=== PATIENT | male | born 1945 | race African-American/Black ===

== ENCOUNTER → 2017-07-27 | Outpatient (CLI) | payer MEDICARE ==
--- NOTE | 2017-07-27 14:29 | US ---
EXAMINATION TYPE: US kidneys/renal and bladder DATE OF EXAM: 07/27/2017 COMPARISON: pet ct perfusion 2016 CLINICAL HISTORY: N18.3 Chronic kidney disease, stage 3 (moderate). EXAM MEASUREMENTS: Right Kidney: 9.8 x 4.2 x 4.8 cm Left Kidney: 10.5 x 5.1 x 4.3 cm Post Void Residual Volume: 9 mL liver cyst 1.7 x 1.7 x 1.0 cm left lobe Right Kidney: small cyst lower pole 1.2 x 1.0 x1.5 cm Left Kidney: wnl Bladder: Limited by incomplete distention demonstrates no definite obvious abnormality. Bilateral Jets seen: No Normal Post Void Residual: Yes IMPRESSION: 1. Hepatic cyst appears unchanged from 2016 CT scan. 2. No hydronephrosis or nephrolithiasis bilaterally. Hypoechoic nodule in the right kidney is too sma ll to characterize difficult to determine by ultrasound if it is related to extrarenal pelvis or para pelvic cyst.
== END | disposition home or self-care (01) ==
LOC: RADUSWWP 13:29
PROVIDERS: ATTEND Internal Medicine
DX: N18.3 Chronic kidney disease, stage 3 (moderate) (principal); K76.89 Other specified diseases of liver
CPT/HCPCS: 76770

== ENCOUNTER 2019-12-06 08:48 | Inpatient (IN) | payer MEDICARE ==
[2019-12-06] MEDS ORDERED: ONDANSETRON 4 MG/2 ML VIAL IVP PRN (09:00)
[2019-12-06 09:48] LABS: Basophils % (A) 0 %; Eosinophils % (A) 1 %; HCT 40.7 % (39.0-53.0); HGB 13.2 gm/dL (13.0-17.5); Lymphocytes # (A) 1.1 k/uL (1.0-4.8); Lymphocytes % (A) 21 %; MCH 29.4 pg (25.0-35.0); MCHC 32.4 g/dL (31.0-37.0); MCV 90.5 fL (80.0-100.0); Mean Platelet Volume 8.6; Monocytes # (A) 0.1 k/uL (0-1.0); Monocytes % (A) 3 %; Neutrophils # (A) 3.7 k/uL (1.3-7.7); Neutrophils % (A) 73 %; Platelet Count 147 k/uL (150-450); RDW 14.5 % (11.5-15.5); WBC 5.1 k/uL (3.8-10.6)
[2019-12-06 09:58] LABS: ALT 21 U/L (4-49); AST 29 U/L (17-59); African American GFR (CKD) 67 (>60 ml/min/1.73 sqM); Albumin 3.9 g/dL (3.5-5.0); Albumin/Globulin Ratio 1.8; Alkaline Phosphatase 72 U/L (38-126); Anion Gap 8 mmol/L; Blood Urea Nitrogen 18 mg/dL (9-20); Calcium 9.4 mg/dL (8.4-10.2); Carbon Dioxide 25 mmol/L (22-30); Chloride 107 mmol/L (98-107); Globulin 2.2 g/dL; Glucose 110 mg/dL (74-99); Non-African American GFR(CKD) 58 (>60 ml/min/1.73 sqM); Phosphorus 3.8 mg/dL (2.5-4.5); Potassium 4.3 mmol/L (3.5-5.1); Sodium 140 mmol/L (137-145); Total Bilirubin 0.5 mg/dL (0.2-1.3); Total Protein 6.1 g/dL (6.3-8.2); Uric Acid 3.6 mg/dL (3.5-8.5)
[2019-12-06 10:08] LABS: INR 0.9 (<1.2); Prothrombin Time 9.7 sec (9.0-12.0)
[2019-12-06] MEDS ORDERED: LIDOCAINE 1% INJ 10MG/ML (20 ML MDV) ONE (13:33)
[2019-12-06] MEDS ORDERED: LIDOCAINE 1% INJ 10MG/ML (20 ML MDV) SQ ONE (13:45)
[2019-12-06] MEDS: SODIUM CHLORIDE 0.9% 1,000 ML IV SCH ×3 (14:28→18:22)
[2019-12-06] MEDS: DEXAMETHASONE SOD PHOSPHATE 10 MG/ML 1 ML VIAL IV SCH (14:34)
[2019-12-06] MEDS: ONDANSETRON 16 MG in SODIUM CHLORIDE 0.9% 50 ML IVPB SCH (14:34)
[2019-12-06] MEDS: FAMOTIDINE 20 MG/2 ML VIAL IVP SCH (14:34)
[2019-12-06] MEDS: allopurinoL 300 MG TAB PO SCH (15:26)
[2019-12-06] MEDS: ETOPOSIDE 200 MG in SODIUM CHLORIDE 0.9% 500 ML 500 ML IV SCH (15:27)
--- NOTE | 2019-12-06 16:55 | IR ---
EXAMINATION TYPE: IR cvc insert >=5 years DATE OF EXAM: 12/06/2019 COMPARISON: NONE CLINICAL HISTORY: Lymphoma Needs long-term intravenous access for chemotherapy. PROCEDURE: Hand hygiene obtained with soap and water and alcohol-based hand rub. After informed consent, the skin overlying the left brachial vein was localized with ultrasound and n oted to be compressible and patent. An ultrasound image was obtained and submitted on the patient's chart. The overlying skin was prepped and draped and Lidocaine was used for local anesthesia. A ski n jose was made with a scalpel. Access was gained to the vein under ultrasound guidance with a 21 ga uge needle and a 0.018 inch wire was advanced. Access site was dilated with Peel-Away sheath and cat heter tailored to the appropriate length and advanced such that the distal tip is at the cavoatrial j unction. Spot image was obtained verifying placement. Catheter was fixed to the skin and a sterile dressing was placed following hemostasis. Catheter was aspirated and flushed with saline. Patient w as discharged in stable condition without complication.Maximal barrier technique is utilized. Ultras ound image is documented on the chart. Ultrasound used with sterile technique. Fluoro time and fluoroscopic images submitted to document procedure: 2 intraoperative images, 0.4 min utes fluoroscopy time IMPRESSION: STATUS POST ULTRASOUND AND FLUOROSCOPIC GUIDED PICC LINE PLACEMENT, READY FOR USE. THIS PROCEDURE WAS PERFORMED BY THE UNDERSIGNED.
--- NOTE | 2019-12-06 17:30 | P.HPIM ---
History of Present Illness H&P Date: 12/06/19 Chief Complaint: Timed Chemotherapy Follow Up for Non Hodgkins Lymphoma HPI : Pt is known to our practice with primary oncologist Dr. 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 He also had a bone marrow aspirate and biopsy, which was positive. The patient ,initially,was on watchful approach. In ,he noticed right neck mass which led to a repeat PET scan which showed evidence of disease progression. He had a repeat PET scan on 08/22/2011 which showed improvement. He developed enlarging axillary LN the end of December, and night sweats almost on a daily basis. He had a repeat CT scan on 01/22/2012 which revealed extensive generalized lymphadenopathies. A PET scan on 01/30/2012 revealed uptake in multiple enlarging lymp nodes, but no very high uptake suggestive of transformation. He had a left axillary lymph node biopsy on 02/03/2012 which revealed SLL. Pt started FCR on 02/17/2012 and completed his 6th and final cycle on 013.tolerated it very well. Repeat CT of chest/abdomen/pelvis on 08/12/2012 showed almost complete response,they reported a questionable lesion in the colon. Repeat CT scan on 02/10/[address] scan of chest/abdomen/pelvis on 07/16/2014 revealed a new small,1.8cm,left inguinal node. Repeat CT scan of chest/abdomen/pelvis on 04/25/2015 revealed slight increase in size of left inguinal node,otherwise negative. On 08/03/2015,PET scan revealed suspicious uptake in left inguinal node,otherwise negative. On 08/26/2015,excisional biopsy of left inguinal node revealed diffuse large B cell lymphoma. On 08/30/2015,echocardiogram revealed normal EF. He started RCHOP on 09/12/2015 Repeat PET scan on 11/10/2015 revealed no active disease. He completed 6 cycles of R-CHOP on 01/02/2016. Repeat PET scan on 02/01/2016 was normal. He did well until October/2019 when he noticed enlarged LN in his neck and groin. Repeat PET scan on 11/10/2019 revealed several enlarged nodes above and below diaphragm,the highest SUV was in left supraclavicular node (SUV 12.6),for which he underwent exicional biopsy on 11/14/2019,biopsy was positive for non germinal center DLBCL on background of SLL,LDH,hepatitis panel ,CBC were normal,uric acid 6.8. He feels fine,active,no systemic symptoms. Dr. 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 As a standard of care,recommendations for salvage therapy with RICE regimen to be followed by autologous stem cell transplant. The patients case was discussed with Dr Germán Baldwin at [facility], currently there is no open protocol for him at this time. Based on that, we will proceed with salvage RICE followed by transplant. We discussed potential toxicities and side effects,he agreed to proceed with it today on 12/06/2019. He was started on allopurinol on 11/27. He has been admitted to oncology floor, picc line order placed. Medical management consultation. Review of Systems All systems: negative Constitutional: Reports as per HPI Past Medical History Past Medical History: GERD/Reflux, Hypertension Additional Past Medical History / Comment(s): 2010 diagnosed with lymphoma- received chemo in 2011 and 2015, diverticular disease/benign polyp, unable to complete sleep study-uses TAP device History of Any Multi-Drug Resistant Organisms: None Reported Additional Past Surgical History / Comment(s): Colonoscopies/benign polypectomy, port since removed, biopsy L lower neck in 2010 and recently. Past Anesthesia/Blood Transfusion Reactions: No Reported Reaction Smoking Status: Former smoker - Past Family History Father Family Medical History: Cancer Additional Family Medical History / Comment(s): Prostate cancer. Mother Family Medical History: COPD Additional Family Medical History / Comment(s): Mother from COPD. She was a smoker. Medications and Allergies Home Medications Medication Instructions Recorded Confirmed Type Carvedilol [Coreg] 6.25 mg PO BID 12/06/19 12/06/19 History Cholecalciferol [Vitamin D3 (25 1,000 unit PO DAILY 12/06/19 12/06/19 History Mcg = 1000 Iu)] Multivitamins, Thera [Multivitamin 1 tab PO DAILY 12/06/19 12/06/19 History (formulary)] allopurinoL [Zyloprim] 300 mg PO DAILY 12/06/19 12/06/19 History amLODIPine [Norvasc] 5 mg PO DAILY 12/06/19 12/06/19 History Allergies Allergy/AdvReac Type Severity Reaction Status Date / Time No Known Allergies Allergy Verified 11/29/19 14:35 Physical Exam Vitals: Vital Signs Temp Pulse Resp BP Pulse Ox 12/06/19 15:35 97.6 F 62 14 118/64 97 12/06/19 09:15 97.9 F 74 18 123/70 97 Intake and Output 12/06/19 12/06/19 12/06/19 06:59 14:59 22:59 Other: Voiding Method Toilet # Voids 2 Weight 84.731 kg - Constitutional General appearance: cooperative, no acute distress - EENT Eyes: EOMI, PERRLA ENT: NA/AT, normal oropharynx - Neck Neck: normal ROM - Respiratory Respiratory: bilateral: CTA - Cardiovascular Rhythm: regular Heart sounds: normal: S1, S2 - Gastrointestinal General gastrointestinal: normal bowel sounds, soft - Genitourinary Bilateral Inguinal adenopathy Male genitourinary: right inguinal lymphadenopathy - Integumentary Integumentary: normal - Neurologic Neurologic: CNII-XII intact - Musculoskeletal Musculoskeletal: generalized weakness, strength equal bilaterally - Psychiatric Psychiatric: A&O x's 3, appropriate affect, intact judgment & insight Results CBC & Chem 7: 12/06/19 09:16 12/06/19 09:16 Labs: Abnormal Lab Results - Last 24 Hours (Table) 12/06/19 12/06/19 Range/Units 09:16 09:16 Plt Count 147 L (150-450) k/uL Glucose 110 H (74-99) mg/dL Total Protein 6.1 L (6.3-8.2) g/dL Thrombosis Risk Factor Assmnt - DVT/VTE Prophylaxis DVT/VTE Prophylaxis: Pharmacologic Prophylaxis ordered - Choose All That Apply Any of the Below Risk Factors Present?: Yes Each Factor Represents 1 point: Obesity (BMI >25) Other Risk Factors: Yes Each Risk Factor Represents 2 Points: Age 61-74 years, Malignancy Other congenital or acquired thrombophilia - If yes, enter type in comment: No Thrombosis Risk Factor Assessment Total Risk Factor Score: 5 Thrombosis Risk Factor Assessment Level: High Risk Assessment and Plan (1) B-cell lymphoma Current Visit: Yes Status: Acute Code(s): C85.10 - UNSPECIFIED B-CELL LYMPHOMA, UNSPECIFIED SITE SNOMED Code(s): 943179818 (2) Small cell B-cell lymphoma Current Visit: Yes Status: Acute Code(s): C83.00 - SMALL CELL B-CELL LYMPHOMA, UNSPECIFIED SITE SNOMED Code(s): 787789715 Plan: Treatment Plan for Salvage therapy of recurrent B Cell Lymphoma - Large B cell lymphoma transformed from small cell lymphoma. Picc line placement for chemotherapy infusion today CBC, CMP, Mag, Phos, Uric acid, LDH Daily while hospitalized Urine dip for RBCs daily prior to Ifos IV Hydration fluids Regular Diet Lovenox VTE prophylaxis as long as platelet count greater than 50K All BLOOD PRODUCTS TO BE LEUKOREDUCED< IRRADIATED< CMV NEG (until antibodies are checked) Transfuse PRBC hemoglobin less than 7, and platelets to be transfused for platelet count less than 10K. PPI - Omeprazole PRN - Antimetics Physician Attest: I have completed the full history and physical and developed the above impression and plan, agree with dictation by NEURORADIOLOGIST, Dictated as a scribe.
[2019-12-06] MEDS: carvediloL 6.25 MG TAB PO SCH (18:22)
[2019-12-06 18:48] LABS: Appearance,Urine Clear (Clear); Bilirubin,Urine Negative (Negative); Blood,Urine Negative (Negative); Color,Urine Light Yellow; Glucose,Urine (UA) Negative (Negative); Ketones,Urine Negative (Negative); Leukocyte Esterase,Urine Negative (Negative); Nitrite,Urine Negative (Negative); Protein,Urine Negative (Negative); Specific Gravity,Urine 1.012 (1.001-1.035); Urobilinogen,Urine <2.0 mg/dL (<2.0)
[2019-12-07 04:41] LABS: Basophils % (A) 0 %; Eosinophils % (A) 0 %; HCT 37.6 % (39.0-53.0); HGB 11.9 gm/dL (13.0-17.5); Lymphocytes # (A) 0.6 k/uL (1.0-4.8); Lymphocytes % (A) 15 %; MCH 28.4 pg (25.0-35.0); MCHC 31.7 g/dL (31.0-37.0); MCV 89.7 fL (80.0-100.0); Mean Platelet Volume 8.7; Monocytes # (A) 0.1 k/uL (0-1.0); Monocytes % (A) 3 %; Neutrophils # (A) 3.2 k/uL (1.3-7.7); Neutrophils % (A) 79 %; Platelet Count 159 k/uL (150-450); RBC 4.19 m/uL (4.30-5.90); RDW 14.8 % (11.5-15.5)
[2019-12-07 06:10] LABS: Appearance,Urine Clear (Clear); Bilirubin,Urine Negative (Negative); Blood,Urine Negative (Negative); Color,Urine Light Yellow; Glucose,Urine (UA) Negative (Negative); Ketones,Urine Negative (Negative); Leukocyte Esterase,Urine Negative (Negative); Nitrite,Urine Negative (Negative); Protein,Urine Negative (Negative); Specific Gravity,Urine 1.013 (1.001-1.035); Urobilinogen,Urine <2.0 mg/dL (<2.0)
[2019-12-07] MEDS: SODIUM CHLORIDE 0.9% 1,000 ML IV SCH ×3 (07:22→15:58)
[2019-12-07] MEDS: allopurinoL 300 MG TAB PO SCH (09:08)
[2019-12-07] MEDS: carvediloL 6.25 MG TAB PO SCH ×2 (09:08→18:29)
[2019-12-07] MEDS: ENOXAPARIN 40 MG/0.4 ML SYRINGE SQ SCH (09:08)
[2019-12-07] MEDS: amLODIPine 5 MG TAB PO SCH (09:09)
[2019-12-07 09:10] LABS: African American GFR (CKD) 77.3 (60.0-200.0); Albumin 3.6 g/dL (3.80-4.90); Albumin/Globulin Ratio 2.4 (1.60-3.17); Anion Gap 8.2 mmol/L (4.00-12.00); BUN/Creat Ratio 18.18 Ratio (12.00-20.00); Calcium 8.9 mg/dL (8.7-10.3); Carbon Dioxide 24.8 mmol/L (21.6-31.8); Globulin 1.5 g/dL (1.6-3.3); Non-African American GFR(CKD) 66.7 (60.0-200.0); Phosphorus 4.9 mg/dL (2.4-5.1); Potassium 4.8 mmol/L (3.5-5.5); Total Bilirubin 0.5 mg/dL (0.2-1.2); Total Protein 5.1 g/dL (6.2-8.2); Uric Acid 4.2 mg/dL (3.7-8.7)
[2019-12-07] MEDS: PANTOPRAZOLE SODIUM 40 MG GRANULE PKT PO SCH (09:15)
[2019-12-07] MEDS: DEXAMETHASONE SOD PHOSPHATE 10 MG/ML 1 ML VIAL IV SCH (14:41)
[2019-12-07] MEDS: ONDANSETRON 16 MG in SODIUM CHLORIDE 0.9% 50 ML IVPB SCH (14:42)
[2019-12-07] MEDS: FAMOTIDINE 20 MG/2 ML VIAL IVP SCH (14:42)
[2019-12-07] MEDS: ETOPOSIDE 200 MG in SODIUM CHLORIDE 0.9% 500 ML 500 ML IV SCH (15:14)
[2019-12-07] MEDS ORDERED: SENNOSIDES 8.6 MG TAB PO PRN (15:59)
[2019-12-07] MEDS ORDERED: IFOSFAMIDE IV ONE (16:00)
[2019-12-07] MEDS ORDERED: [UNRECOGNIZED DRUG - OTHER] IV ONE (16:00)
[2019-12-07] MEDS ORDERED: CARBOplatin 400 MG in SODIUM CHLORIDE 0.9% 250 ML IV ONE (16:00)
[2019-12-07] MEDS ORDERED: IFOSFAMIDE 9,000 MG, IFOSFAMIDE 1,000 MG in SODIUM CHLORIDE 0.9% 1,000 ML IV ONE (16:00)
[2019-12-07] MEDS ORDERED: SODIUM CHLORIDE 0.9% IV ONE (16:00)
[2019-12-07] MEDS ORDERED: MESNA IV ONE (16:00)
--- NOTE | 2019-12-07 16:17 | P.PN ---
Subjective Progress Note Date: 12/07/19 The patient is on day 2 of his chemotherapy protocol. So far. He denies any tolerance issues. No fever/chills/nausea/vomiting. Appetite is well maintained. Objective - Vital Signs Vital signs: Vital Signs Temp 98.2 F 12/07/19 15:24 Pulse 60 12/07/19 15:24 Resp 14 12/07/19 15:24 BP 120/69 12/07/19 15:24 Pulse Ox 99 12/07/19 15:24 Intake & Output 12/06/19 12/07/19 12/07/19 18:59 06:59 18:59 Intake Total 1040 Balance 1040 Weight 84.731 kg Intake: Intake, IV Titration 800 Amount Sodium Chloride 0.9% 1, 800 000 ml @ 100 mls/hr IV . Q10H CHIO Rx#:[id number] Oral 240 Other: Voiding Method Toilet Toilet Toilet # Voids 1 2 - Constitutional General appearance: Present: no acute distress - EENT Eyes: Present: EOMI ENT: Present: hearing grossly normal, normal oropharynx - Respiratory Respiratory: bilateral: CTA - Cardiovascular Rhythm: regular Heart sounds: normal: S1, S2 - Gastrointestinal General gastrointestinal: Present: normal bowel sounds, soft - Integumentary Integumentary: Present: normal - Neurologic Neurologic: Present: CNII-XII intact - Musculoskeletal Musculoskeletal: Present: strength equal bilaterally - Psychiatric Psychiatric: Present: A&O x's 3 (Lymphadenopathy involving bilateral supraclavicular, left axillary, and bilateral inguinal, stable), appropriate affect - Labs CBC & Chem 7: 12/07/19 03:48 12/07/19 03:48 Labs: Abnormal Lab Results - Last 24 Hours (Table) 12/07/19 12/07/19 Range/Units 03:48 03:48 RBC 4.19 L (4.30-5.90) m/uL Hgb 11.9 L (13.0-17.5) gm/dL Hct 37.6 L (39.0-53.0) % Lymphocytes # 0.6 L (1.0-4.8) k/uL Glucose 119 H (70-110) mg/dL Total Protein 5.1 L (6.2-8.2) g/dL Albumin 3.60 L (3.80-4.90) g/dL Globulin 1.5 L (1.6-3.3) g/dL Assessment and Plan (1) B-cell lymphoma Narrative/Plan: The patient was admitted for salvage chemotherapy for diffuse large B-cell lymphoma transformed from small B-cell lymphoma. He is currently on day 2 of R- ICE. Tolerance is reasonable so far. Labs were reviewed showing no evidence of tumor lysis. Counts are all maintained in a safe range. - Continue chemotherapy per protocol - Continue to monitor counts and chemistries. Labs have been ordered. -Add rasburicase if there is any evidence of developing tumor lysis. Current Visit: Yes Status: Acute Code(s): C85.10 - UNSPECIFIED B-CELL LYMPHOMA, UNSPECIFIED SITE SNOMED Code(s): 238723822 Plan: Dr. Wolff has been consulted for medical management.
--- NOTE | 2019-12-07 17:13 | P.CONS ---
History of Present Illness - Reason for Consult Consult date: 12/07/19 - History of Present Illness Annalisa Ponce, is a 74-year-old male, who was admitted to [facility] oncology floor by Dr. Melchor, he has known history of stage IV small lymphocytic lymphoma diagnosed in 2010, he received therapy on and off for years, he did well until recently in October 2019 when he was noticed to have enlarged lymph node in the neck and the groin area repeat PET scan was done and was positive patient is admitted now for chemotherapy. Past medical history is significant for hypertension and gastroesophageal reflux disease, history of diverticulosis, and history of colon polyps. Patient also has history of hypertension and history of gout. On review of systems patient is alert and oriented 3 in no apparent distress he denies any fever or chills no headache or dizziness no chest pain no shortness of breath no cough no nausea or vomiting no abdominal pain no diarrhea no blood in the stools no burning with urination no frequency or urgency and no hematuria Past Medical History Past Medical History: GERD/Reflux, Hypertension Additional Past Medical History / Comment(s): 2010 diagnosed with lymphoma-received chemo in 2011 and 2015, diverticular disease/benign polyp, unable to complete sleep study-uses TAP device History of Any Multi-Drug Resistant Organisms: None Reported Additional Past Surgical History / Comment(s): Colonoscopies/benign polypectomy, port since removed, biopsy L lower neck in 2010 and recently. Past Anesthesia/Blood Transfusion Reactions: No Reported Reaction Smoking Status: Former smoker - Past Family History Father Family Medical History: Cancer Additional Family Medical History / Comment(s): Prostate cancer. Mother Family Medical History: COPD Additional Family Medical History / Comment(s): Mother from COPD. She was a smoker. Medications and Allergies Home Medications Medication Instructions Recorded Confirmed Type Carvedilol [Coreg] 6.25 mg PO BID 12/06/19 12/06/19 History Cholecalciferol [Vitamin D3 (25 1,000 unit PO DAILY 12/06/19 12/06/19 History Mcg = 1000 Iu)] Multivitamins, Thera [Multivitamin 1 tab PO DAILY 12/06/19 12/06/19 History (formulary)] allopurinoL [Zyloprim] 300 mg PO DAILY 12/06/19 12/06/19 History amLODIPine [Norvasc] 5 mg PO DAILY 12/06/19 12/06/19 History Allergies Allergy/AdvReac Type Severity Reaction Status Date / Time No Known Allergies Allergy Verified 11/29/19 14:35 Physical Exam Vitals: Vital Signs Temp Pulse Pulse Resp BP Pulse Ox 12/07/19 12:03 97.8 F 60 14 121/71 100 12/07/19 11:20 97.8 F 60 14 121/71 12/07/19 07:53 97.9 F 61 16 124/69 12/07/19 04:39 97.8 F 64 16 122/68 98 12/07/19 00:00 97.6 F 55 L 18 106/55 97 12/06/19 22:08 97.8 F 64 18 112/65 98 12/06/19 16:00 14 12/06/19 15:35 97.6 F 62 14 118/64 97 Intake and Output 12/06/19 12/07/19 12/07/19 22:59 06:59 14:59 Intake Total 240 Balance 240 Intake: Oral 240 Other: Voiding Method Toilet Toilet Toilet # Voids 1 2 In general patient is alert and oriented 3 HEENT head normocephalic and atraumatic Neck is supple no JVD no goiter Chest exam reveals a few scattered rhonchi no wheezing Cardiac exam reveals regular heart sounds no murmurs Abdomen is soft nontender no organomegaly with normal bowel sounds Extremity exam reveals 2+ edema bilaterally no cyanosis or clubbing Neurological examination reveals no gross focal deficit Results CBC & Chem 7: 12/07/19 03:48 12/07/19 03:48 Labs: Abnormal Lab Results - Last 24 Hours (Table) 12/07/19 12/07/19 Range/Units 03:48 03:48 RBC 4.19 L (4.30-5.90) m/uL Hgb 11.9 L (13.0-17.5) gm/dL Hct 37.6 L (39.0-53.0) % Lymphocytes # 0.6 L (1.0-4.8) k/uL Glucose 119 H (70-110) mg/dL Total Protein 5.1 L (6.2-8.2) g/dL Albumin 3.60 L (3.80-4.90) g/dL Globulin 1.5 L (1.6-3.3) g/dL Assessment and Plan Plan: 1. Diffuse large B-cell lymphoma patient is admitted for chemotherapy, management per oncology service 2. Underlying history of hypertension blood pressure medication resumed 3. Underlying history of gastroesophageal reflux disease started on famotidine 4. Underlying history of gout allopurinol resumed 5. For DVT prophylaxis patient started on subcu Lovenox 40 mg once daily Medication and labs were reviewed will follow closely
[2019-12-08] MEDS: SODIUM CHLORIDE 0.9% 1,000 ML IV SCH ×2 (03:36→15:02)
[2019-12-08] MEDS: carvediloL 6.25 MG TAB PO SCH ×2 (07:13→17:43)
[2019-12-08] MEDS: PANTOPRAZOLE SODIUM 40 MG GRANULE PKT PO SCH (07:13)
[2019-12-08 08:06] LABS: Basophils % (A) 0 %; Eosinophils % (A) 0 %; HCT 36.2 % (39.0-53.0); HGB 12.6 gm/dL (13.0-17.5); Lymphocytes # (A) 0.5 k/uL (1.0-4.8); Lymphocytes % (A) 15 %; MCH 30.5 pg (25.0-35.0); MCHC 34.7 g/dL (31.0-37.0); MCV 87.9 fL (80.0-100.0); Mean Platelet Volume 9.2; Monocytes # (A) 0.1 k/uL (0-1.0); Monocytes % (A) 4 %; Neutrophils # (A) 2.7 k/uL (1.3-7.7); Neutrophils % (A) 79 %; Platelet Count 143 k/uL (150-450); RBC 4.11 m/uL (4.30-5.90); RDW 14.4 % (11.5-15.5); WBC 3.5 k/uL (3.8-10.6)
[2019-12-08] MEDS ORDERED: allopurinoL 300 MG TAB PO SCH (09:00)
[2019-12-08] MEDS ORDERED: MULTIVITAMINS, THERA 1 EACH TAB PO SCH (09:00)
[2019-12-08] MEDS ORDERED: CHOLECALCIFEROL 1,000 UNIT TAB PO SCH (09:00)
[2019-12-08] MEDS: amLODIPine 5 MG TAB PO SCH (09:13)
[2019-12-08] MEDS: ENOXAPARIN 40 MG/0.4 ML SYRINGE SQ SCH (09:13)
[2019-12-08 10:12] VITALS: RESP 16
[2019-12-08 11:17] LABS: African American GFR (CKD) 77.3 (60.0-200.0); Albumin 3.5 g/dL (3.80-4.90); Albumin/Globulin Ratio 2.33 (1.60-3.17); Anion Gap 6.7 mmol/L (4.00-12.00); BUN/Creat Ratio 18.18 Ratio (12.00-20.00); Calcium 8.9 mg/dL (8.7-10.3); Carbon Dioxide 25.3 mmol/L (21.6-31.8); Globulin 1.5 g/dL (1.6-3.3); Magnesium 1.9 mg/dL (1.5-2.4); Non-African American GFR(CKD) 66.7 (60.0-200.0); Phosphorus 4.9 mg/dL (2.4-5.1); Potassium 4.3 mmol/L (3.5-5.5); Total Bilirubin 0.6 mg/dL (0.2-1.2); Uric Acid 4.6 mg/dL (3.7-8.7)
[2019-12-08 12:35] VITALS: TEMP 98.2
[2019-12-08] MEDS ORDERED: polyethylene glycoL 3350 17 GM POWD.PACK PO STA (14:45)
--- NOTE | 2019-12-08 14:48 | P.PN ---
Subjective Progress Note Date: 12/08/19 Annalisa Ponce, is a 74-year-old male, who was admitted to [facility] oncology floor by Dr. Melchor, he has known history of stage IV small lymphocytic lymphoma diagnosed in 2010, he received therapy on and off for years, he did well until recently in October 2019 when he was noticed to have enlarged lymph node in the neck and the groin area repeat PET scan was done and was positive patient is admitted now for chemotherapy. Past medical history is significant for hypertension and gastroesophageal reflux disease, history of diverticulosis, and history of colon polyps. Patient also has history of hypertension and history of gout. On review of systems patient is alert and oriented 3 in no apparent distress he denies any fever or chills no headache or dizziness no chest pain no shortness of breath no cough no nausea or vomiting no abdominal pain no diarrhea no blood in the stools no burning with urination no frequency or urgency and no hematuria On 12/08/2019 patient was seen and examined on the medical floor he is alert and oriented 3 in no apparent distress he is complaining of constipation otherwise he denies any complaints there is no fever or chills no headache or dizziness no chest pain no shortness of breath no cough no nausea or vomiting no abdominal pain no diarrhea no blood in the stools no burning with urination no frequency or urgency no hematuria Objective - Vital Signs Vital signs: Vital Signs Temp 98.2 F 12/08/19 12:34 Pulse 55 L 12/08/19 12:34 Resp 16 12/08/19 12:34 BP 122/64 12/08/19 12:34 Pulse Ox 100 12/08/19 12:34 Intake & Output 12/07/19 12/08/19 12/08/19 18:59 06:59 18:59 Intake Total 1040 1141 Balance 1040 1141 Intake: Intake, IV Titration 800 851 Amount Ifosfamide 9,000 mg 250 Ifosfamide 1,000 mg In Sodium Chloride 0.9% 1, 000 ml @ 50 mls/hr IV ONCE ONE Rx#:[id number] [place] 10,000 mg In Empty 101 Bag 1 bag In Sodium Chloride 0.9% 500 ml 400 ml @ 20.833 mls/hr IV ONCE ONE Rx#:[id number] Sodium Chloride 0.9% 1, 800 500 000 ml @ 100 mls/hr IV . Q10H CHIO Rx#:[id number] Oral 240 290 Other: Voiding Method Toilet Toilet Toilet Urinal Urinal # Voids 2 - Exam In general patient is alert and oriented 3 HEENT head normocephalic and atraumatic Neck is supple no JVD no goiter Chest exam reveals a few scattered rhonchi no wheezing Cardiac exam reveals regular heart sounds no murmurs Abdomen is soft nontender no organomegaly with normal bowel sounds Extremity exam reveals 2+ edema bilaterally no cyanosis or clubbing Neurological examination reveals no gross focal deficit - Labs CBC & Chem 7: 12/08/19 06:56 12/08/19 06:56 Labs: Abnormal Lab Results - Last 24 Hours (Table) 12/08/19 12/08/19 Range/Units 06:56 06:56 WBC 3.5 L (3.8-10.6) k/uL RBC 4.11 L (4.30-5.90) m/uL Hgb 12.6 L (13.0-17.5) gm/dL Hct 36.2 L (39.0-53.0) % Plt Count 143 L (150-450) k/uL Lymphocytes # 0.5 L (1.0-4.8) k/uL Total Protein 5.0 L (6.2-8.2) g/dL Albumin 3.50 L (3.80-4.90) g/dL Globulin 1.5 L (1.6-3.3) g/dL Assessment and Plan Plan: 1. Diffuse large B-cell lymphoma patient is admitted for chemotherapy, management per oncology service 2. Underlying history of hypertension blood pressure medication resumed 3. Underlying history of gastroesophageal reflux disease started on famotidine 4. Underlying history of gout allopurinol resumed 5. For DVT prophylaxis patient started on subcu Lovenox 40 mg once daily Medication and labs were reviewed will follow closely
[2019-12-08] MEDS: DEXAMETHASONE SOD PHOSPHATE 10 MG/ML 1 ML VIAL IV SCH (16:01)
[2019-12-08] MEDS: FAMOTIDINE 20 MG/2 ML VIAL IVP SCH (16:01)
[2019-12-08] MEDS: ONDANSETRON 16 MG in SODIUM CHLORIDE 0.9% 50 ML IVPB SCH (16:02)
--- NOTE | 2019-12-08 16:07 | P.PN ---
Subjective Progress Note Date: 12/08/19 Principal diagnosis: Timed Chemotherapy Patient tolerating treatment great. COnstipation only complaint as of today We discussed treatment plan and expected side effects and prevention of side effects Greater than 30 minutes counseling and cordinating care today Objective - Vital Signs Vital signs: Vital Signs Temp 98.2 F 12/08/19 12:34 Pulse 55 L 12/08/19 12:34 Resp 16 12/08/19 12:34 BP 122/64 12/08/19 12:34 Pulse Ox 100 12/08/19 12:34 Intake & Output 12/07/19 12/08/19 12/08/19 18:59 06:59 18:59 Intake Total 1040 1141 Balance 1040 1141 Intake: Intake, IV Titration 800 851 Amount Ifosfamide 9,000 mg 250 Ifosfamide 1,000 mg In Sodium Chloride 0.9% 1, 000 ml @ 50 mls/hr IV ONCE ONE Rx#:[id number] [place] 10,000 mg In Empty 101 Bag 1 bag In Sodium Chloride 0.9% 500 ml 400 ml @ 20.833 mls/hr IV ONCE ONE Rx#:[id number] Sodium Chloride 0.9% 1, 800 500 000 ml @ 100 mls/hr IV . Q10H CHIO Rx#:[id number] Oral 240 290 Other: Voiding Method Toilet Toilet Toilet Urinal Urinal # Voids 2 - Exam - Constitutional General appearance: Present: no acute distress - EENT Eyes: Present: EOMI ENT: Present: hearing grossly normal, normal oropharynx - Respiratory Respiratory: bilateral: CTA - Cardiovascular Rhythm: regular Heart sounds: normal: S1, S2 - Gastrointestinal General gastrointestinal: Present: normal bowel sounds, soft - Integumentary Integumentary: Present: normal - Neurologic Neurologic: Present: CNII-XII intact - Musculoskeletal Musculoskeletal: Present: strength equal bilaterally - Psychiatric Psychiatric: Present: A&O x's 3 (Lymphadenopathy involving bilateral supraclavicular, left axillary, and bilateral inguinal, stable), appropriate affect - Constitutional General appearance: Present: cooperative - Labs CBC & Chem 7: 12/08/19 06:56 12/08/19 06:56 Labs: Abnormal Lab Results - Last 24 Hours (Table) 12/08/19 12/08/19 Range/Units 06:56 06:56 WBC 3.5 L (3.8-10.6) k/uL RBC 4.11 L (4.30-5.90) m/uL Hgb 12.6 L (13.0-17.5) gm/dL Hct 36.2 L (39.0-53.0) % Plt Count 143 L (150-450) k/uL Lymphocytes # 0.5 L (1.0-4.8) k/uL Total Protein 5.0 L (6.2-8.2) g/dL Albumin 3.50 L (3.80-4.90) g/dL Globulin 1.5 L (1.6-3.3) g/dL Assessment and Plan (1) B-cell lymphoma Status: Acute Code(s): C85.10 - UNSPECIFIED B-CELL LYMPHOMA, UNSPECIFIED SITE SNOMED Code(s): 725781024 (2) Small cell B-cell lymphoma Status: Acute Code(s): C83.00 - SMALL CELL B-CELL LYMPHOMA, UNSPECIFIED SITE SNOMED Code(s): 247003133 Plan: Treatment Plan for Salvage therapy of recurrent B Cell Lymphoma - Large B cell lymphoma transformed from small cell lymphoma. Picc line placement for chemotherapy infusion today CBC, CMP, Mag, Phos, Uric acid, LDH Daily while hospitalized Urine dip for RBCs daily prior to Ifos IV Hydration fluids Regular Diet Lovenox VTE prophylaxis as long as platelet count greater than 50K All BLOOD PRODUCTS TO BE LEUKOREDUCED< IRRADIATED< CMV NEG (until antibodies are checked) Transfuse PRBC hemoglobin less than 7, and platelets to be transfused for platelet count less than 10K. PPI - Omeprazole PRN - Antimetics Greater than 30 minutes counseling discharge today zofran PPI claritin senna s miralax acyclovir all at discharge bradycardia - echo and ekg prior to discharge neulasta office wednesday cbc and followup
[2019-12-08] MEDS: ETOPOSIDE 200 MG in SODIUM CHLORIDE 0.9% 500 ML 500 ML IV SCH (16:19)
[2019-12-08 17:42] VITALS: BP 130/71; PULSE 62
[2019-12-08] MEDS ORDERED: DOCUSATE 100 MG CAP PO SCH (21:00)
== END 2019-12-08 18:39 | disposition home or self-care (01) | DRG 847 ==
LOC: 6NMEDSUR 08:48
PROVIDERS: ADMIT Internal Medicine Hematology & Oncology; ATTEND Internal Medicine Hematology & Oncology
PROC: 02HV33Z Insertion of Infusion Device into Superior Vena Cava, Percutaneous Approach (ICD-10-PCS; 2019-12-06)
PROC: 3E04305 Introduction of Other Antineoplastic into Central Vein, Percutaneous Approach (ICD-10-PCS; principal; 2019-12-06 13:15)
DX: Z51.11 Encounter for antineoplastic chemotherapy (principal); C83.30 Diffuse large B-cell lymphoma, unspecified site; Z94.84 Stem cells transplant status; I10 Essential (primary) hypertension; K21.9 Gastro-esophageal reflux disease without esophagitis; M10.9 Gout, unspecified; R00.1 Bradycardia, unspecified; K59.00 Constipation, unspecified; Z87.891 Personal history of nicotine dependence; Z87.19 Personal history of other diseases of the digestive system; Z80.42 Family history of malignant neoplasm of prostate; Z79.899 Other long term (current) drug therapy; Z82.5 Family history of asthma and other chronic lower respiratory diseases; Z86.010 Personal history of colon polyps
CPT/HCPCS: 36573; 80053; 81003; 83735; 84100; 84550; 85025; 85610; 93005; 93306

== ENCOUNTER 2020-01-02 08:46 | Inpatient (IN) | payer MEDICARE ==
[2020-01-02] MEDS ORDERED: ONDANSETRON 4 MG/2 ML VIAL IVP PRN (09:00)
[2020-01-02] MEDS: allopurinoL 300 MG TAB PO SCH (09:39)
[2020-01-02] MEDS: SODIUM CHLORIDE 0.9% 1,000 ML IV SCH ×2 (10:38→21:42)
[2020-01-02 10:53] LABS: ALT 18 U/L (4-49); AST 19 U/L (17-59); African American GFR (CKD) 64 (>60 ml/min/1.73 sqM); Albumin 3.7 g/dL (3.5-5.0); Albumin/Globulin Ratio 1.7; Alkaline Phosphatase 87 U/L (38-126); Anion Gap 5 mmol/L; Blood Urea Nitrogen 20 mg/dL (9-20); Calcium 9.6 mg/dL (8.4-10.2); Carbon Dioxide 25 mmol/L (22-30); Chloride 107 mmol/L (98-107); Globulin 2.2 g/dL; Glucose 125 mg/dL (74-99); Non-African American GFR(CKD) 55 (>60 ml/min/1.73 sqM); Phosphorus 3.6 mg/dL (2.5-4.5); Potassium 3.9 mmol/L (3.5-5.1); Sodium 137 mmol/L (137-145); Total Bilirubin 0.3 mg/dL (0.2-1.3); Total Protein 5.9 g/dL (6.3-8.2); Uric Acid 3.7 mg/dL (3.5-8.5)
[2020-01-02 11:04] LABS: Anisocytosis Slight; Basophils % (A) 0 %; Eosinophils % (A) 0 %; HCT 34.8 % (39.0-53.0); HGB 11.5 gm/dL (13.0-17.5); Hypochromasia Slight; Lymphocytes # (A) 1.1 k/uL (1.0-4.8); Lymphocytes % (A) 12 %; MCH 28.7 pg (25.0-35.0); MCV 87.1 fL (80.0-100.0); Mean Platelet Volume 7.4; Monocytes # (A) 0.4 k/uL (0-1.0); Monocytes % (A) 5 %; Neutrophils # (A) 7.2 k/uL (1.3-7.7); Neutrophils % (A) 82 %; Poikilocytosis Slight; RBC 3.99 m/uL (4.30-5.90); WBC 8.8 k/uL (3.8-10.6)
[2020-01-02 11:10] LABS: Platelet Count 366 k/uL (150-450)
--- NOTE | 2020-01-02 13:04 | P.HPIM ---
History of Present Illness H&P Date: 01/02/20 Chief Complaint: CIVI chemotherapy for DLBCL Mr. Baez is a very pleasant Male treating with Dr. Melchor. Has Hx of stage IV SLL diagnosed 05/26, presented with a palpable left surpraclavicular LN. BM Bx and asp positive. Initially was on watchful approa ch. 04/26 pt noted rt neck mass, repeat PET showed evidence of disease progression. He had a repeat PET scan on 08/22/2011 which showed improvement. Developed enlarging axillary LN 12/[address] 01/22/2012 revealed extensive generalized lymphadenopathies. PET 01/30/2012 revealed uptake in multiple enlarging LN, but no very high uptake suggestive of transformation. Lt ax LN biopsy 02/03/12 revealed SLL. Treated with FCR, completed his 6th and final cycle on 07/07/12. CT CAP 08/12/12 showed almost complete response. 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 He started RCHOP 09/12/15. PET 11/10/15 revealed no active disease. Completed 6 cycles of R-CHOP on 01/02/16. He did well until Oct 2019 when he noticed enlarged LN in his neck and groin. PET 11/10/19 revealed several enlarged nodes above and below diaphragm, highest SUV was in left supraclavicular node (SUV 12.6), for which he underwent excisional biopsy 11/14/19, positive for non germinal center DLBCL on background of SLL. 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 Standard of care recommendations for salvage therapy with RICE regimen to be followed by autologous stem cell transplant. The patients case was discussed with Dr. Germán Baldwin at [facility], no open protocol available. Based on that, pt started salvage RICE to be followed by transplant. 1st cycle 12/06/2019. He is admitted for cycle #2 today Pt denies any F, oral irritation, appetite decent, no N,V, SOB, cough, chest pains/palpitations, acute changes in bowel or bladder, swelling, rash or bruising. He is ambulatory, energy levels fair, the LN in his groin are notably smaller. He has been having his PSA monitored, he has no urinary symptoms other then slow stream at night. Review of Systems 14 point ROS is negative except as stated in HPI Past Medical History Past Medical History: Cancer, GERD/Reflux, Hypertension Additional Past Medical History / Comment(s): 2010 diagnosed with lymphoma- received chemo in 2011 and 2015, diverticular disease/benign polyp, unable to complete sleep study-uses TAP device History of Any Multi-Drug Resistant Organisms: None Reported Additional Past Surgical History / Comment(s): Colonoscopies/benign polypectomy, port since removed, biopsy L lower neck in 2010 and recently. Past Anesthesia/Blood Transfusion Reactions: No Reported Reaction Past Psychological History: No Psychological Hx Reported Additional Psychological History / Comment(s): Pt resides with his spouse. He is independent. Smoking Status: Former smoker Past Alcohol Use History: Occasional Additional Past Alcohol Use History / Comment(s): Pt started smoking in 1960 and quit in 1975 Past Drug Use History: None Reported - Past Family History Father Family Medical History: Cancer Additional Family Medical History / Comment(s): Prostate cancer. Mother Family Medical History: COPD Additional Family Medical History / Comment(s): Mother from COPD. She was a smoker. Medications and Allergies Home Medications Medication Instructions Recorded Confirmed Type allopurinoL [Zyloprim] 300 mg PO DAILY #14 tab 12/08/19 01/02/20 Rx Allergies Allergy/AdvReac Type Severity Reaction Status Date / Time No Known Allergies Allergy Verified 01/02/20 09:35 Physical Exam Vitals: Intake and Output 01/01/20 01/02/20 01/02/20 22:59 06:59 14:59 Other: Weight 83.4 kg - Constitutional General appearance: cooperative, no acute distress, obese - EENT Eyes: anicteric sclerae, EOMI ENT: hearing grossly normal, normal oropharynx - Neck lt groin subcentimeter hard LN palpable, smaller - Respiratory Respiratory: bilateral: CTA - Cardiovascular Rhythm: regular Heart sounds: normal: S1, S2 Abnormal Heart Sounds: no systolic murmur, no diastolic murmur, no rub, no S3 Gallop, no S4 Gallop, no click, no other leg Peripheral Edema: bilateral: None - Gastrointestinal General gastrointestinal: no absent bowel sounds, no decreased bowel sounds, no distended, no hepatomegaly, no hyperactive bowel sounds, normal bowel sounds, no organomegaly, no rigid, no scaphoid, soft, no splenomegaly, no tenderness, no umbilical hernia, no ventral hernia - Integumentary Integumentary: normal turgor - Neurologic Neurologic: CNII-XII intact - Musculoskeletal Musculoskeletal: strength equal bilaterally - Psychiatric Psychiatric: A&O x's 3, appropriate affect, intact judgment & insight Results CBC & Chem 7: 01/02/20 10:11 01/02/20 10:11 Labs: Abnormal Lab Results - Last 24 Hours (Table) 01/02/20 01/02/20 Range/Units 10:11 10:11 RBC 3.99 L (4.30-5.90) m/uL Hgb 11.5 L (13.0-17.5) gm/dL Hct 34.8 L (39.0-53.0) % RDW 17.0 H (11.5-15.5) % Creatinine 1.29 H (0.66-1.25) mg/dL Glucose 125 H (74-99) mg/dL Total Protein 5.9 L (6.3-8.2) g/dL Thrombosis Risk Factor Assmnt - DVT/VTE Prophylaxis DVT/VTE Prophylaxis: Pharmacologic Prophylaxis ordered - Choose All That Apply Each Risk Factor Represents 2 Points: Age 61-74 years Thrombosis Risk Factor Assessment Total Risk Factor Score: 2 Thrombosis Risk Factor Assessment Level: Low Risk Assessment and Plan (1) B-cell lymphoma Narrative/Plan: Admit for cycle 2 of salvage RICE Labs daily Supportive meds ordered Early, frequent ambulation F/U daily Meds reconciled Telemetry Medicine consulted for Medical Mgmt Current Visit: Yes Status: Acute Priority: High Code(s): C85.10 - UNSPECIFIED B-CELL LYMPHOMA, UNSPECIFIED SITE SNOMED Code(s): 844686748
[2020-01-02] MEDS ORDERED: ACETAMINOPHEN TAB 325 MG TAB PO PRN (13:05)
[2020-01-02] MEDS ORDERED: MAGNESIUM HYDROXIDE 2,400 MG/10 ML CUP PO PRN (13:06)
[2020-01-02] MEDS: DEXAMETHASONE SOD PHOSPHATE 10 MG/ML 1 ML VIAL IV SCH (14:06)
[2020-01-02] MEDS: ONDANSETRON 16 MG in SODIUM CHLORIDE 0.9% 50 ML IVPB SCH (14:06)
[2020-01-02] MEDS: FAMOTIDINE 20 MG/2 ML VIAL IVP SCH (14:06)
[2020-01-02] MEDS: ETOPOSIDE 200 MG in SODIUM CHLORIDE 0.9% 500 ML 500 ML IV SCH (14:48)
[2020-01-02] MEDS: SALT AND SODA MOUTHWASH 1,000 ML PO SCH ×3 (14:53→23:57)
[2020-01-03] MEDS: SODIUM CHLORIDE 0.9% 1,000 ML IV SCH ×2 (06:09→15:05)
[2020-01-03] MEDS: SALT AND SODA MOUTHWASH 1,000 ML PO SCH ×4 (06:10→20:13)
[2020-01-03 08:28] LABS: Anisocytosis Slight; Basophils % (A) 0 %; Eosinophils % (A) 1 %; HGB 12.6 gm/dL (13.0-17.5); Hypochromasia Slight; Lymphocytes # (A) 0.9 k/uL (1.0-4.8); Lymphocytes % (A) 10 %; MCH 30.3 pg (25.0-35.0); MCV 86.7 fL (80.0-100.0); Mean Platelet Volume 7.2; Monocytes # (A) 0.4 k/uL (0-1.0); Monocytes % (A) 4 %; Neutrophils # (A) 7.8 k/uL (1.3-7.7); Neutrophils % (A) 85 %; Platelet Count 408 k/uL (150-450); Poikilocytosis Slight; RBC 4.16 m/uL (4.30-5.90); RDW 17.4 % (11.5-15.5); WBC 9.2 k/uL (3.8-10.6)
[2020-01-03] MEDS: allopurinoL 300 MG TAB PO SCH (08:33)
[2020-01-03 08:45] LABS: ALT 20 U/L (4-49); AST 20 U/L (17-59); African American GFR (CKD) 64 (>60 ml/min/1.73 sqM); Albumin 4.1 g/dL (3.5-5.0); Albumin/Globulin Ratio 1.8; Alkaline Phosphatase 83 U/L (38-126); Anion Gap 6 mmol/L; Blood Urea Nitrogen 21 mg/dL (9-20); Calcium 9.7 mg/dL (8.4-10.2); Carbon Dioxide 26 mmol/L (22-30); Chloride 107 mmol/L (98-107); Globulin 2.3 g/dL; Glucose 113 mg/dL (74-99); Non-African American GFR(CKD) 55 (>60 ml/min/1.73 sqM); Potassium 4.4 mmol/L (3.5-5.1); Sodium 139 mmol/L (137-145); Total Bilirubin 0.8 mg/dL (0.2-1.3); Total Protein 6.4 g/dL (6.3-8.2); Uric Acid 4.2 mg/dL (3.5-8.5)
[2020-01-03] MEDS: amLODIPine 5 MG TAB PO SCH (10:59)
[2020-01-03] MEDS: FAMOTIDINE 20 MG/2 ML VIAL IVP SCH (14:55)
[2020-01-03] MEDS: ONDANSETRON 16 MG in SODIUM CHLORIDE 0.9% 50 ML IVPB SCH (14:56)
[2020-01-03] MEDS: DEXAMETHASONE SOD PHOSPHATE 10 MG/ML 1 ML VIAL IV SCH (14:56)
[2020-01-03] MEDS: ETOPOSIDE 200 MG in SODIUM CHLORIDE 0.9% 500 ML 500 ML IV SCH (15:30)
[2020-01-03] MEDS ORDERED: CARBOplatin 420 MG in SODIUM CHLORIDE 0.9% 250 ML IV ONE (16:00)
[2020-01-03] MEDS ORDERED: IFOSFAMIDE 9,000 MG, IFOSFAMIDE 1,000 MG in SODIUM CHLORIDE 0.9% 1,000 ML IV ONE (16:00)
[2020-01-03] MEDS ORDERED: SODIUM CHLORIDE 0.9% IV ONE (16:00)
[2020-01-03] MEDS ORDERED: MESNA IV ONE (16:00)
--- NOTE | 2020-01-03 16:52 | P.PN ---
Subjective Progress Note Date: 01/03/20 Principal diagnosis: CIVI ICE, cycle 2 In follow-up today patient has no acute complaints. No fevers, tolerating oral intake, no acute changes in bowel or bladder habits, he is independently ambulatory, energy levels good fair Objective - Vital Signs Vital signs: Vital Signs Temp 98.6 F 01/03/20 12:00 Pulse 68 01/03/20 12:00 Resp 12 01/03/20 12:00 BP 112/61 01/03/20 12:00 Pulse Ox 98 01/03/20 12:00 Intake & Output 01/02/20 01/03/20 01/03/20 18:59 06:59 18:59 Intake Total 900 800 Balance 900 800 Weight 83.4 kg Intake: Intake, IV Titration 300 800 Amount Sodium Chloride 0.9% 1, 300 800 000 ml @ 100 mls/hr IV . Q10H [facility] Rx#:[id number] Blood Product 600 Other: Voiding Method Toilet Toilet Toilet Urinal Urinal Urinal # Voids 1 # Bowel Movements 0 - Constitutional General appearance: Present: cooperative, no acute distress, obese - EENT Eyes: Present: anicteric sclerae, EOMI ENT: Present: hearing grossly normal, normal oropharynx - Neck Neck: Present: lymphadenopathy (in the groin, improved) - Respiratory Respiratory: bilateral: CTA - Cardiovascular Rhythm: regular Heart sounds: normal: S1, S2 Abnormal Heart Sounds: Absent: systolic murmur, diastolic murmur, rub, S3 Gallop, S4 Gallop, click, other - Peripheral edema leg Peripheral Edema: bilateral: None - Gastrointestinal General gastrointestinal: Present: normal bowel sounds, soft. Absent: absent bowel sounds, decreased bowel sounds, distended, hepatomegaly, hyperactive bowel sounds, organomegaly, rigid, scaphoid, splenomegaly, tenderness, umbilical hernia, ventral hernia - Integumentary Integumentary: Present: normal - Neurologic Neurologic: Present: CNII-XII intact - Musculoskeletal Musculoskeletal: Present: strength equal bilaterally - Psychiatric Psychiatric: Present: A&O x's 3, appropriate affect, intact judgment & insight - Labs CBC & Chem 7: 01/03/20 08:11 01/03/20 08:11 Labs: Abnormal Lab Results - Last 24 Hours (Table) 01/03/20 01/03/20 Range/Units 08:11 08:11 RBC 4.16 L (4.30-5.90) m/uL Hgb 12.6 L (13.0-17.5) gm/dL Hct 36.0 L (39.0-53.0) % RDW 17.4 H (11.5-15.5) % Neutrophils # 7.8 H (1.3-7.7) k/uL Lymphocytes # 0.9 L (1.0-4.8) k/uL BUN 21 H (9-20) mg/dL Creatinine 1.29 H (0.66-1.25) mg/dL Glucose 113 H (74-99) mg/dL Phosphorus 5.0 H (2.5-4.5) mg/dL Assessment and Plan (1) B-cell lymphoma Narrative/Plan: Admit for cycle 2 of salvage RICE. No acute problems reported today Labs daily-stable Supportive meds ordered. No significant SE reported Early, frequent ambulation. Pt active F/U daily Meds reconciled-BP meds confirmed Telemetry Medicine consulted for Medical Mgmt [place] fluids Current Visit: Yes Status: Acute Priority: High Code(s): C85.10 - UNSPECIFIED B-CELL LYMPHOMA, UNSPECIFIED SITE SNOMED Code(s): 027404554 Plan: Doctor attests: I performed a history and physical examination of this patient, developed impression and plan of care, discussed with dictator. I agree with dictators note, documented as a scribe.
[2020-01-03] MEDS: carvediloL 6.25 MG TAB PO SCH (17:20)
[2020-01-04] MEDS: SODIUM CHLORIDE 0.9% 1,000 ML IV SCH ×2 (01:00→09:37)
[2020-01-04] MEDS: SALT AND SODA MOUTHWASH 1,000 ML PO SCH ×4 (01:00→16:05)
[2020-01-04 06:31] LABS: Anisocytosis Slight; Basophils % (A) 0 %; Eosinophils % (A) 0 %; HCT 35.7 % (39.0-53.0); HGB 11.6 gm/dL (13.0-17.5); Hypochromasia Slight; Lymphocytes # (A) 0.5 k/uL (1.0-4.8); Lymphocytes % (A) 10 %; MCH 28.7 pg (25.0-35.0); MCHC 32.5 g/dL (31.0-37.0); MCV 88.2 fL (80.0-100.0); Mean Platelet Volume 7.7; Monocytes # (A) 0.2 k/uL (0-1.0); Monocytes % (A) 4 %; Neutrophils # (A) 4.7 k/uL (1.3-7.7); Neutrophils % (A) 85 %; Platelet Count 321 k/uL (150-450); Poikilocytosis Slight; RBC 4.04 m/uL (4.30-5.90); WBC 5.6 k/uL (3.8-10.6)
[2020-01-04] MEDS ORDERED: allopurinoL 300 MG TAB PO SCH (09:00)
[2020-01-04] MEDS: carvediloL 6.25 MG TAB PO SCH ×2 (09:38→17:14)
[2020-01-04] MEDS: amLODIPine 5 MG TAB PO SCH (09:38)
[2020-01-04] MEDS: allopurinoL 300 MG TAB PO SCH (09:38)
[2020-01-04 09:59] LABS: African American GFR (CKD) 86.8 (60.0-200.0); Albumin 3.5 g/dL (3.80-4.90); Albumin/Globulin Ratio 2.5 (1.60-3.17); Anion Gap 7.7 mmol/L (4.00-12.00); Calcium 9.3 mg/dL (8.7-10.3); Carbon Dioxide 24.3 mmol/L (21.6-31.8); Globulin 1.4 g/dL (1.6-3.3); Non-African American GFR(CKD) 74.9 (60.0-200.0); Phosphorus 4.1 mg/dL (2.4-5.1); Potassium 4.3 mmol/L (3.5-5.5); Total Bilirubin 0.5 mg/dL (0.2-1.2); Total Protein 4.9 g/dL (6.2-8.2); Uric Acid 3.8 mg/dL (3.7-8.7)
[2020-01-04 11:55] VITALS: BP 122/66; PULSE 59; RESP 17; TEMP 97.6
[2020-01-04] MEDS: ONDANSETRON 16 MG in SODIUM CHLORIDE 0.9% 50 ML IVPB SCH (16:03)
[2020-01-04] MEDS: DEXAMETHASONE SOD PHOSPHATE 10 MG/ML 1 ML VIAL IV SCH (16:04)
[2020-01-04] MEDS: FAMOTIDINE 20 MG/2 ML VIAL IVP SCH (16:04)
[2020-01-04] MEDS: ETOPOSIDE 200 MG in SODIUM CHLORIDE 0.9% 500 ML 500 ML IV SCH (16:52)
--- NOTE | 2020-01-04 17:43 | P.DS ---
Providers Date of admission: 01/02/20 08:46 Expected date of discharge: 01/04/20 Attending physician: Mahogany Melchor Consults: 01/02/20 13:06 Consult Physician Routine Consulting Provider: Sanya Wolff Consult Reason/Comments: medical management Do you want consulting provider notified?: Yes, Notify in am Primary care physician: Mahogany Melchor - Discharge Diagnosis(es) (1) B-cell lymphoma Current Visit: Yes Status: Acute Priority: High Hospital Course: Pt admitted for cycle #2 ICE salvage therapy for DLBCL. Tolerated Tx well, no uncontrolled SE. Conditional DC today. Has appt in ofc tomorrow Assessment: Well-developed well-nourished -Mexican male sitting up in bed, alert and oriented 4, no acute distress, oral mucosa free of thrush or lesions, bilateral breath sounds clear to auscultation, respiratory effort unlabored, S1, S2, regular rate and rhythm, bowel sounds positive, no abdominal discomfort, no swelling Doctor attests: I performed a history and physical examination of this patient, developed impression and plan of care, discussed with dictator. I agree with dictators note, documented as a scribe. Patient Condition at Discharge: Stable Plan - Discharge Summary Discharge Rx Participant: No New Discharge Prescriptions: No Action allopurinoL [Zyloprim] 300 mg PO DAILY #14 tab carvediloL [Coreg] 1 tablet PO BID-W/MEALS amLODIPine [Norvasc] 1 tablet PO DAILY Discharge Medication List allopurinoL [Zyloprim] 300 mg PO DAILY #14 tab 12/08/19 [Rx] amLODIPine [Norvasc] 1 tablet PO DAILY 01/03/20 [History] carvediloL [Coreg] 1 tablet PO BID-W/MEALS 01/03/20 [History] Follow up Appointment(s)/Referral(s): Mahogany Melchor MD [Primary Care Provider] - 01/05/20 2:30 pm (This is for neulasta injection) Patient Instructions/Handouts: Carboplatin (By injection), Etoposide (By injection), Ifosfamide/[place] (Injection) Activity/Diet/Wound Care/Special Instructions: [place] fluids Activity as tolerated Diet as tolerated Report to MD fever 100.5F or higher Get GCSF (WBC booster shot) in ofc 01/05/20 1430 Discharge Disposition: HOME SELF-CARE Pending Studies Pending Results: none
--- NOTE | 2020-01-04 18:09 | P.CONS ---
History of Present Illness - Reason for Consult Consult date: 01/03/20 - History of Present Illness Annalisa Ponce, he is a 74-year-old male well-known to my practice who was admitted by oncology for chemotherapy for B-cell lymphoma, medical consultation was requested for management while hospitalized. Patient has a known history of hypertension, gout, history of colon polyps, he recently had a PSA that was elevated at 10 his previous PSA was 1.5 in October 2018 otherwise no significant past medical history could be elicited. On review of system there is no fever or chills no headache or dizziness no chest pain no shortness of breath no cough no nausea or vomiting no abdominal pain no diarrhea and no urinary symptoms Past Medical History Past Medical History: Cancer, GERD/Reflux, Hypertension Additional Past Medical History / Comment(s): 2010 diagnosed with lymphoma- received chemo in 2011 and 2015, diverticular disease/benign polyp, unable to complete sleep study-uses TAP device History of Any Multi-Drug Resistant Organisms: None Reported Additional Past Surgical History / Comment(s): Colonoscopies/benign polypectomy, port since removed, biopsy L lower neck in 2010 and recently. Past Anesthesia/Blood Transfusion Reactions: No Reported Reaction Past Psychological History: No Psychological Hx Reported Additional Psychological History / Comment(s): Pt resides with his spouse. He is independent. Smoking Status: Former smoker Past Alcohol Use History: Occasional Additional Past Alcohol Use History / Comment(s): Pt started smoking in 1960 and quit in 1975 Past Drug Use History: None Reported - Past Family History Father Family Medical History: Cancer Additional Family Medical History / Comment(s): Prostate cancer. Mother Family Medical History: COPD Additional Family Medical History / Comment(s): Mother from COPD. She was a smoker. Medications and Allergies Home Medications Medication Instructions Recorded Confirmed Type allopurinoL [Zyloprim] 300 mg PO DAILY #14 tab 12/08/19 01/02/20 Rx amLODIPine [Norvasc] 1 tablet PO DAILY 01/03/20 01/03/20 History carvediloL [Coreg] 1 tablet PO BID-W/MEALS 01/03/20 01/03/20 History Allergies Allergy/AdvReac Type Severity Reaction Status Date / Time No Known Allergies Allergy Verified 01/02/20 09:35 Physical Exam Vitals: Vital Signs Temp Pulse Resp BP Pulse Ox 11/18/20 12:00 98.6 F 68 12 112/61 98 01/03/20 08:30 97.8 F 67 16 125/74 97 01/03/20 04:32 97.5 F L 57 L 18 127/72 100 01/03/20 00:00 18 01/02/20 23:00 97.9 F 62 18 116/53 99 Intake and Output 01/03/20 01/03/20 01/03/20 06:59 14:59 22:59 Intake Total 800 Balance 800 Intake: Intake, IV Titration 800 Amount Sodium Chloride 0.9% 1, 800 000 ml @ 100 mls/hr IV . Q10H [facility] Rx#:[id number] Other: Voiding Method Toilet Toilet Urinal Urinal # Bowel Movements 0 On physical exam patient is alert and oriented 3 in no distress HEENT head normocephalic and atraumatic Neck is supple no JVD no goiter no lymphadenopathy Chest exam reveals a few scattered rhonchi no wheezing Cardiac exam reveals regular heart sounds S1 and S2 no gallops no murmurs Abdomen is soft nontender no organomegaly with normal bowel sounds Extremity exam reveals no edema Neurological examination reveals no gross focal deficit Results CBC & Chem 7: 01/04/20 06:20 01/04/20 06:20 Labs: Abnormal Lab Results - Last 24 Hours (Table) 01/03/20 01/03/20 Range/Units 08:11 08:11 RBC 4.16 L (4.30-5.90) m/uL Hgb 12.6 L (13.0-17.5) gm/dL Hct 36.0 L (39.0-53.0) % RDW 17.4 H (11.5-15.5) % Neutrophils # 7.8 H (1.3-7.7) k/uL Lymphocytes # 0.9 L (1.0-4.8) k/uL BUN 21 H (9-20) mg/dL Creatinine 1.29 H (0.66-1.25) mg/dL Glucose 113 H (74-99) mg/dL Phosphorus 5.0 H (2.5-4.5) mg/dL Assessment and Plan Plan: 1. B-cell lymphoma admitted for chemotherapy management per oncology 2. Underlying history of hypertension will resume home medications and monitor closely 3. Underlying history of gout Zyloprim was resumed 4. Elevated PSA of 10 which is a new finding for patient, will have outpatient workup in the next few weeks Medication and labs were reviewed will follow during this admission for medical management
== END 2020-01-04 18:19 | disposition home or self-care (01) | DRG 847 ==
LOC: 5NMEDONC 08:46
PROVIDERS: ADMIT Internal Medicine Hematology & Oncology; ATTEND Internal Medicine Hematology & Oncology
DX: Z51.11 Encounter for antineoplastic chemotherapy (principal); C83.38 Diffuse large B-cell lymphoma, lymph nodes of multiple sites; I10 Essential (primary) hypertension; K21.9 Gastro-esophageal reflux disease without esophagitis; M10.9 Gout, unspecified; R97.20 Elevated prostate specific antigen [PSA]; K57.90 Diverticulosis of intestine, part unspecified, without perforation or abscess without bleeding; E66.9 Obesity, unspecified; Z68.26 Body mass index [BMI] 26.0-26.9, adult; Z79.899 Other long term (current) drug therapy; Z87.891 Personal history of nicotine dependence; Z86.010 Personal history of colon polyps; Z80.42 Family history of malignant neoplasm of prostate; Z82.5 Family history of asthma and other chronic lower respiratory diseases
CPT/HCPCS: 80053; 84100; 84550; 85025

== ENCOUNTER 2020-01-15 10:54 | Day surgery (SDC) | payer MEDICARE ==
[2020-01-08 12:33] VITALS: BMI 26.2
[~2020-01-15 10:54] MED LIST: LACTATED RINGERS 1,000 ML IV SCH
[2020-01-15 11:22] VITALS: TEMP 96.8
[2020-01-15] MEDS ORDERED: PROPOFOL 10 MG/ML 20 ML VIAL IV ONE (12:16)
[2020-01-15 12:35] VITALS: RESP 18
[2020-01-15 12:52] LABS: Basophils % (A) 0 %; Eosinophils % (A) 0 %; HCT 33.4 % (39.0-53.0); HGB 11.1 gm/dL (13.0-17.5); Lymphocytes # (A) 0.9 k/uL (1.0-4.8); Lymphocytes % (A) 10 %; MCH 28.6 pg (25.0-35.0); MCHC 33.2 g/dL (31.0-37.0); MCV 86.1 fL (80.0-100.0); Mean Platelet Volume 8.7; Monocytes # (A) 0.5 k/uL (0-1.0); Monocytes % (A) 5 %; Neutrophils # (A) 7.8 k/uL (1.3-7.7); Neutrophils % (A) 83 %; Poikilocytosis Slight; RBC 3.88 m/uL (4.30-5.90); RDW 15.9 % (11.5-15.5); Reticulocyte % 0.7 % (0.5-2.0); WBC 9.4 k/uL (3.8-10.6)
[2020-01-15 12:55] LABS: Platelet Count 73 k/uL (150-450)
[2020-01-15 13:26] VITALS: BP 125/67; PULSE 64
--- NOTE | 2020-01-16 02:27 | PCN ---
PROCEDURE NOTE DATE OF SERVICE: January 15, 2020. PROCEDURE: Bone marrow aspirate and biopsy. INDICATION: Diffuse large B-cell lymphoma, small lymphocytic lymphoma. Followup on induction treatment. DESCRIPTION OF PROCEDURE: After obtaining consent from the patient, the procedure was performed in the endoscopy suite under general anesthesia performed by anesthesia team. The patient was put in left lateral decubitus position. The right posterior iliac crest was localized. Skin was cleansed with ChloraPrep, all sterile procedures were followed and 2 mL of 2% Xylocaine was used for local anesthetic. Monoject needle was inserted 15 mL of aspirate and 2 cm core biopsy was obtained without any difficulties. Pressure applied afterwards. There was negligible blood loss. Patient tolerated procedure very well without any immediate complications. MMODL / IJN: [id number] /
== END 2020-01-15 13:27 | disposition home or self-care (01) ==
LOC: OR 10:54
PROVIDERS: ATTEND Internal Medicine Hematology & Oncology
DX: D64.9 Anemia, unspecified (principal); D69.6 Thrombocytopenia, unspecified; C85.90 Non-Hodgkin lymphoma, unspecified, unspecified site; Z79.899 Other long term (current) drug therapy; Z80.42 Family history of malignant neoplasm of prostate; Z87.891 Personal history of nicotine dependence
CPT/HCPCS: 85025; 85045; 38222; J2704

== ENCOUNTER → 2020-01-19 | Outpatient (CLI) | payer MEDICARE ==
--- NOTE | 2020-01-22 06:11 | PE ---
EXAMINATION TYPE: PET CT fusion skull to thigh DATE OF EXAM: 01/19/2020 COMPARISON: Prior PET/CT November 10, 2019 and older studies. HISTORY: Non-Hodgkin Lymphoma progress study. Originally diagnosed 5 years ago in the neck, complet ed chemotherapy 5 years ago. Recent recurrence with new chemotherapy treatment. TECHNIQUE: Following the intravenous administration of 11.77 mCi of F-18 FDG, whole body images are performed from the skull base to the midthigh. Images are reviewed on the computer in the coronal, a xial, and sagittal planes. Reconstructed rotating images are created on independent workstation and reviewed on the computer. A localization and attenuation correction CT is performed in conjunction with the PET scan. SCAN: Subsequent Scan FINDINGS: Mean SUV mediastinum: 0.92 Mean SUV liver: 1.97 SKULL BASE AND NECK: There is improved but persistent hypermetabolic left neck confluent adenopathy beginning above the hyoid bone extending inferiorly to left supraclavicular region in the posterior c ervical triangle. Max SUV is 7.42 on axial image 56. Lymph nodes difficult to accurately measure due to confluent multifocal appearance. They are obviously decreasing in size from prior PET/CT. There is persistent hypermetabolic adenopathy extending to the left supraclavicular region however noted. CHEST, MEDIASTINUM, AND HILAR REGION: Stable prominent borderline enlarged bilateral axillary lymph n odes, they show improvement on PET/CT, currently max SUV less than 2.5. Lymph node in the deep right axilla measuring 1.6 x 1.5 cm on image 76 prior study now measures 1.3 x 1.2 cm current study axial i mage 82. No suspicious hypermetabolic or enlarging lymph nodes in the bilateral hilar region or mediastinum. ABDOMEN AND PELVIS: Fairly stable hypermetabolic retroperitoneal lymph nodes, for reference 1.4 x 1.2 cm aortocaval lymph node posteriorly axial image 181, max SUV is 3.85 prior study and is now 4.73. For reference there is abnormal 2.3 x 1.0 cm precaval lymph node axial image 191, max SUV is 4.00 angie or study and is now 3.86. There are abnormal hypermetabolic lymph nodes within the iliac chain vessels bilaterally with increas ed hypermetabolic uptake on the right versus left side redemonstrated. For reference 2.4 x 4.5 cm ant erior right external iliac chain lymph node is stable in size, has max SUV of 6.21 on image 223 prior study and now has max SUV of 7.29 on image 229 current study. There is interval improvement in size and abnormal hypermetabolic uptake in the bilateral groin lymph nodes. No suspicious persistent hypermetabolic adenopathy in the groin region bilaterally on current study. OSSEOUS STRUCTURES: Mild diffuse uptake felt to reflect posttreatment change. No new areas of suspici ous hypermetabolic uptake. OTHER CT: Bilateral subareolar gynecomastia redemonstrated. Interval removal of right sided Mediport catheter. Coronary artery calcification redemonstrated. Heart size stable and mildly enlarged. Few subcentimeter hypodense lesions throughout the liver are too small to further characterize presum ed benign. There is simple appearing 1.6 cm thin-walled cyst right hepatic lobe axial image 167 redem onstrated. Scattered left-sided pelvic phleboliths. Prostate gland mildly enlarged. Small fat-contain ing bilateral inguinal hernias. Slight scoliotic curvature. Mild calcified plaque distal abdominal aorta. IMPRESSION: Overall partial positive treatment response as detailed above.
== END | disposition home or self-care (01) ==
LOC: RADPETMAIN 07:34
PROVIDERS: ATTEND Internal Medicine Hematology & Oncology
DX: C83.35 Diffuse large B-cell lymphoma, lymph nodes of inguinal region and lower limb (principal); Z92.21 Personal history of antineoplastic chemotherapy
CPT/HCPCS: 78815; A9552

== ENCOUNTER 2020-03-22 06:17 | Day surgery (SDC) | payer MEDICARE ==
[2020-03-19 15:55] VITALS: BMI 26.6
[2020-03-22] MEDS ORDERED: LACTATED RINGERS 1,000 ML IV ONE (06:37)
[2020-03-22 07:06] VITALS: TEMP 97.2
[2020-03-22] MEDS ORDERED: PROPOFOL 10 MG/ML 20 ML VIAL IV ONE (07:09)
[2020-03-22 07:30] VITALS: PULSE 56
[2020-03-22 07:41] VITALS: BP 118/70; RESP 18
[2020-03-22 08:10] LABS: Basophils % (A) 1 %; Eosinophils # (A) 0.1 k/uL (0-0.7); Eosinophils % (A) 1 %; HCT 44.1 % (39.0-53.0); HGB 14.1 gm/dL (13.0-17.5); Lymphocytes # (A) 0.9 k/uL (1.0-4.8); Lymphocytes % (A) 22 %; MCH 27.4 pg (25.0-35.0); MCHC 32.1 g/dL (31.0-37.0); MCV 85.5 fL (80.0-100.0); Mean Platelet Volume 8.5; Monocytes # (A) 0.4 k/uL (0-1.0); Monocytes % (A) 10 %; Neutrophils # (A) 2.7 k/uL (1.3-7.7); Neutrophils % (A) 64 %; Platelet Count 110 k/uL (150-450); RBC 5.16 m/uL (4.30-5.90); RDW 12.8 % (11.5-15.5); Reticulocyte % 1.2 % (0.5-2.0); WBC 4.2 k/uL (3.8-10.6)
--- NOTE | 2020-03-22 08:21 | PCN ---
PROCEDURE NOTE PROCEDURE: Bone marrow aspirate and biopsy. INDICATION: The patient is known to have diffuse large B-cell lymphoma, which has transformed from CLL and indications follow up on response. DESCRIPTION OF PROCEDURE: After obtaining consent from the patient, the procedure was performed in the endoscopy suite under general anesthesia performed by the anesthesia team. The patient was put in the left lateral decubitus position. The right posterior iliac crest was localized. Skin was prepped with ChloraPrep. All sterile procedures were followed The 2% lidocaine was used for local anesthetic. Monoject needle was inserted about 15 mL of aspirate and 1.5 cm core biopsy was obtained without any difficulties. Pressure applied afterwards. There was negligible blood loss. The patient tolerated procedure very well without any immediate complications. MMODL / IJN: [id number] /
== END 2020-03-22 08:04 | disposition home or self-care (01) ==
LOC: OR 06:17
PROVIDERS: ATTEND Internal Medicine Hematology & Oncology
DX: C83.35 Diffuse large B-cell lymphoma, lymph nodes of inguinal region and lower limb (principal); C91.10 Chronic lymphocytic leukemia of B-cell type not having achieved remission; C85.98 Non-Hodgkin lymphoma, unspecified, lymph nodes of multiple sites; I10 Essential (primary) hypertension; Z87.891 Personal history of nicotine dependence; Z79.899 Other long term (current) drug therapy; Z98.890 Other specified postprocedural states; Z80.42 Family history of malignant neoplasm of prostate
CPT/HCPCS: 85025; 85045; 38222; J2704

== ENCOUNTER → 2020-03-22 | Outpatient (CLI) | payer MEDICARE ==
--- NOTE | 2020-03-24 14:00 | PE ---
EXAMINATION TYPE: PET CT fusion skull to thigh DATE OF EXAM: 03/22/2020 COMPARISON: Prior PET/CT January 19, 2020 and older studies. HISTORY: Non-Hodgkin lymphoma diagnosed right hip completed chemotherapy January 2020 TECHNIQUE: Following the intravenous administration of 10.346 mCi of F-18 FDG, whole body images are performed from the skull base to the midthigh. Images are reviewed on the computer in the coronal, axial, and sagittal planes. Reconstructed rotating images are created on independent workstation and reviewed on the computer. A localization and attenuation correction CT is performed in conjunction with the PET scan. SCAN: Subsequent Scan FINDINGS: Mean SUV liver: 1.7 Mean SUV mediastinum: 0.57 SKULL BASE AND NECK: No new or residual areas of abnormal hypermetabolic uptake with particular atte ntion to the left neck. CHEST, MEDIASTINUM, AND HILAR REGION: No new areas of abnormal hypermetabolic uptake. Lymph nodes in bilateral axilla show continued decrease in size. ABDOMEN AND PELVIS: No areas of abnormal hypermetabolic uptake. No abnormal hypermetabolic retroperit quintanilla or iliac chain lymph nodes on current study. Continued decrease in size of bilateral groin lymp h nodes. No new hypermetabolic uptake. OSSEOUS STRUCTURES: No new areas of abnormal hypermetabolic uptake. OTHER CT: Bilateral subareolar gynecomastia redemonstrated. New left-sided PICC line terminates in SV C. Coronary artery calcification redemonstrated. Heart size stable and mildly enlarged. Few subcentimeter hypodense lesions throughout the liver are redemonstrated. There is simple appearin g 1.6 cm thin-walled cyst right hepatic lobe axial image 167 redemonstrated. Scattered left-sided pel esthela phleboliths redemonstrated. Prostate gland remains enlarged. Small fat-containing bilateral ingui nal hernias. Mild calcified plaque distal abdominal aorta. IMPRESSION: No new or residual abnormal hypermetabolic lymph nodes to suggest active lymphoma. Comple te positive treatment response.
== END | disposition home or self-care (01) ==
LOC: RADPETMAIN 13:39
PROVIDERS: ATTEND Internal Medicine Hematology & Oncology
DX: C83.35 Diffuse large B-cell lymphoma, lymph nodes of inguinal region and lower limb (principal); Z98.890 Other specified postprocedural states; Z92.21 Personal history of antineoplastic chemotherapy
CPT/HCPCS: 78815; A9552; 38222; 85025; 85045

== ENCOUNTER 2020-05-28 11:44 | Day surgery (SDC) | payer MEDICARE ==
[2020-05-27 11:03] VITALS: BMI 26.3
[~2020-05-28 11:44] MED LIST changes: +LIDOCAINE 1% (10MG/ML) FOR IV START INTRADERMA PRN
[2020-05-28 12:10] VITALS: RESP 16; TEMP 97
[2020-05-28] MEDS ORDERED: PROPOFOL 10 MG/ML 20 ML VIAL IV ONE (12:30)
[2020-05-28 13:10] LABS: Basophils % (A) 1 %; Eosinophils # (A) 0.1 k/uL (0-0.7); Eosinophils % (A) 1 %; HCT 47.9 % (39.0-53.0); Lymphocytes # (A) 1.7 k/uL (1.0-4.8); Lymphocytes % (A) 22 %; MCH 26.6 pg (25.0-35.0); MCHC 33.4 g/dL (31.0-37.0); MCV 79.5 fL (80.0-100.0); Mean Platelet Volume 9.8; Monocytes # (A) 0.7 k/uL (0-1.0); Monocytes % (A) 9 %; Neutrophils % (A) 67 %; Platelet Count 126 k/uL (150-450); RBC 6.02 m/uL (4.30-5.90); RDW 13.6 % (11.5-15.5); WBC 7.6 k/uL (3.8-10.6)
[2020-05-28 13:22] VITALS: BP 127/78; PULSE 60
[2020-05-28 13:27] LABS: Reticulocyte % 1.1 % (0.5-2.0)
--- NOTE | 2020-05-28 13:44 | PCN ---
PROCEDURE NOTE DATE OF SERVICE: May 28, 2020. PROCEDURE: Bone marrow aspirate and biopsy. INDICATION: Follow up on lymphoma treatment. DESCRIPTION OF PROCEDURE: After obtaining consent from the patient, the procedure was performed in the endoscopy suite under general anesthesia performed by the anesthesia team. The patient was put in the left lateral decubitus position. The right posterior superior iliac crest was localized. Skin was prepped with ChloraPrep and all sterile procedures were followed. Two mL of 2% Xylocaine was used for local anesthetic. Monoject needle was inserted. About 15 mL of aspirate and 1 cm core biopsy was obtained without any difficulties. Pressure applied afterwards. There was negligible blood loss. Patient tolerated procedure very well without any immediate complications. MMODL / IJN: [id number] /
== END 2020-05-28 13:57 | disposition home or self-care (01) ==
LOC: OR 11:44
PROVIDERS: ATTEND Internal Medicine Hematology & Oncology
DX: C83.35 Diffuse large B-cell lymphoma, lymph nodes of inguinal region and lower limb (principal); C85.98 Non-Hodgkin lymphoma, unspecified, lymph nodes of multiple sites; I10 Essential (primary) hypertension; Z79.899 Other long term (current) drug therapy; Z98.890 Other specified postprocedural states; Z80.42 Family history of malignant neoplasm of prostate; Z87.891 Personal history of nicotine dependence; Z92.21 Personal history of antineoplastic chemotherapy
CPT/HCPCS: 38222; 85025; 85045; J2704

== ENCOUNTER → 2020-06-21 | Outpatient (CLI) | payer MEDICARE ==
--- NOTE | 2020-06-24 13:40 | PE ---
Nuclear medicine PET/CT HISTORY: Lymphoma, C 83.31, non-Hodgkin's lymphoma subsequent Patient received 9.1 mCi F-18 FDG intravenously in delayed scanning was performed from the skull base to the mid thighs. Localization and attenuation correction CT scan was performed. Correlation to prior nuclear medicine PET/CT dated 03/22/2020 Chest and neck: Deep to the left sternocleidomastoid muscle at the level of the hyoid bone there is a denopathy in the left neck, enlarged node shows a short axis measurement of 11 to 12 mm there is asso ciated hypermetabolic uptake, smaller nodes are present just inferior to the enlarged node and there is associated hypermetabolic uptake. There is no evident lung mass. No pleural pericardial effusion. No mediastinal, axillary, or hilar adenopathy, shotty nodes are present in the bilateral axillae and mediastinum. Gynecomastia changes are noted incidentally. There are coronary artery calcifications pr esent. ABDOMEN: Some low dense foci within the liver likely to represent cysts. No suspicious uptake in the retroperitoneum. There is no ascites. Mesenteric nodes are small. Along the right iliac chain there a re some nonenlarged nodes which shows some associated uptake, at the level of the aortic bifurcation, proximal right common iliac artery region there is a focus of hypermetabolic uptake present, SUV is. Along the right pelvic sidewall there is a nonenlarged node, axial image 207 with associated hyperme tabolic uptake. No evident inguinal adenopathy. Urinary bladder shows a thickened wall possibly due t o chronic outlet obstruction, prostate appears enlarged. Diverticular change noted incidentally in th e colon. Osseous structures show some degenerative disc changes. Some facet arthropathy noted in the lower lum bar spine. No suspicious uptake. IMPRESSION: There is been some interval increase in hypermetabolic uptake within the left neck, right pelvis as compared to previous exam. SUV values unavailable at this time.
== END | disposition home or self-care (01) ==
LOC: RADPETMAIN 12:03
PROVIDERS: ATTEND Internal Medicine Hematology & Oncology
DX: C83.31 Diffuse large B-cell lymphoma, lymph nodes of head, face, and neck (principal)
CPT/HCPCS: 78815; A9552

== ENCOUNTER → 2020-10-23 | Outpatient (CLI) | payer MEDICARE ==
--- NOTE | 2020-10-23 10:30 | CT ---
EXAMINATION TYPE: CT abdomen w con DATE OF EXAM: 10/23/2020 COMPARISON: 04/25/2015 HISTORY: bilateral upper quadrant cramping/pain, constipation CT DLP: 437.8 mGycm CONTRAST: CT scan of the abdomen is performed with Oral Contrast and with IV Contrast, patient injected with 80 mL of Isovue 300. FINDINGS: LUNG BASES-: No visible nodule. No infiltrate. LIVER/GB: There is gallbladder wall thickening without definite cholelithiasis. A few small hepatic c ysts are noted. Biliary tree is of normal caliber. PANCREAS: No inflammation. No distinct mass. SPLEEN: No splenic enlargement. No lesion seen. ADRENALS: No nodule. No thickening. KIDNEYS/BLADDER: No hydronephrosis. No nephrolithiasis. No distinct renal mass. Urinary bladder g rossly unremarkable. BOWEL: Normal appendix. Normal bowel caliber. No inflammation. LYMPH NODES: No greater than 1cm abdominal or pelvic lymph nodes are appreciated. AORTA: No significant abnormality. OSSEOUS STRUCTURES: No significant abnormality is seen. OTHER: No significant additional abnormality is seen. IMPRESSION: 1. There is gallbladder wall thickening with surrounding attenuation. No gallstones are evident howev er I cannot exclude acute cholecystitis. Correlate clinically.
== END | disposition home or self-care (01) ==
LOC: RADCTMAIN 08:37
PROVIDERS: ATTEND Internal Medicine Hematology & Oncology
DX: C83.38 Diffuse large B-cell lymphoma, lymph nodes of multiple sites (principal)
CPT/HCPCS: 82565; 84520; 74160; 36415; Q9967

== ENCOUNTER → 2020-12-13 | Outpatient (CLI) | payer MEDICARE ==
--- NOTE | 2020-12-17 14:37 | PE ---
Nuclear medicine PET/CT HISTORY: C 83.35, non-Hodgkin's lymphoma neck subsequent Correlation to prior exam 06/21/2020 Patient received 10.4 mCi F-18 FDG intravenously in delayed scanning was performed from the skull bas e to the mid thighs. Localization and attenuation correction CT scan was ordered. Chest and neck: There has been progression compared to previous exam. Extensive adenopathy present al audra the left neck from the level of the second cervical vertebral body deep to the left sternocleidom astoid muscle as well as to the level of the angle of the jaw on the left and extending to the suprac lavicular region, small supraclavicular node is present on the right as well as some hypermetabolic n odes along the right neck, SUV values 8.9, 9.6, 11.7, 12.2, 4.5 on the left, 5.7 on the right. , Pre vious SUV on the left 13 in a limited area as compared to the extensive progression There is bilatera l axillary adenopathy with multiple nodes showing hypermetabolic uptake bilaterally including subpect oral regions, SUV 12.5, 9.5, 4 and 3.8. Focus of activity is also present anterior to the aorta and p osterior to the left atrium. Retrocrural node also shows uptake near the aortic hiatus. No mediastina l or hilar adenopathy. No evident lung mass. No pleural or pericardial effusion. ABDOMEN: Retroperitoneal adenopathy is present with associated uptake SUV 14, there is bilateral adan c adenopathy, SUV 9.8, 5.9, 2.8. Uptake within the bowel is felt likely to be physiologic. Right ingu inal nodes show associated uptake as do nodes along the external iliac vasculature, SUV 4. Osseous structures show possible uptake due to marrow activation. Within the proximal upper extremiti es there is some soft tissue uptake suspected, SUV 4.9-5. IMPRESSION: Progression of adenopathy and hypermetabolic uptake compared to prior.
== END | disposition home or self-care (01) ==
LOC: RADPETMAIN 08:15
PROVIDERS: ATTEND Internal Medicine Hematology & Oncology
DX: C83.35 Diffuse large B-cell lymphoma, lymph nodes of inguinal region and lower limb (principal)
CPT/HCPCS: 78815; A9552